=== PATIENT | male | born 1935 | race Caucasian/White ===

== ENCOUNTER → 2024-04-04 | Outpatient (CLI) | payer MEDICARE ==
--- NOTE | 2024-04-04 15:59 | HMCSR ---
APPROVED REPORT EXAM: Two-dimensional and M-mode echocardiogram with Doppler and color Doppler. INDICATION ICD: Atherosclerotic heart disease of [place] coronary artery without angina pectoris I25.10 2D Dimensions RVDd3.8 cmLVEF(%)64.0 (>50%)LVED Vol(simp.)88.0 mL IVSd1.2 (0.7-1.1cm)FS(%)35 %LVES Vol(simp.)29.3 mL LVDd4.6 (3.8-5.6cm)LA (2D)3.8 (1.6-4.0cm)LVEF(%, simp.)67 % PWd1.3 (0.7-1.1cm)LVOT diam2.4 (1.8-2.4cm)LA ESV INDEX (4CH)24.40 mL/m2 IVSs1.4 cmIVC diam1.8 cmLA ESV INDEX (2CH)41.60 mL/m2 LVDs3.0 (2.5-4.0cm)LA ESV INDEX (BP)32.50 mL/m2 PWs1.5 cm M-Mode Dimensions EPSS0.9 cm LA (MM)4.9 (1.6-4.0cm) Ao Root(MM)3.0 (2.0-3.7cm) Aortic Valve AoV VTI0.3 mAo Mean GR4.0 mmHgLVOT VTI0.18 m TERI (VMAX)2.6 cm2AVA (VTI) 2.6 cm2 Mitral Valve MV E Vmax94.6 cm/sDECEL Oaij581 ms MV A Loaz947.7 cm/sP 1/2 T107 ms E/A ratio0.9MVA (PHT)2.1 cm2 MR Max PG35 mmHg TDI E/E' Zdunfi49.0E/E' Zbayqda25.7 Medial E' Peak V5.90 cm/sLateral E' Peak V4.80 cm/s Pulmonary Valve PV Vmax1.4 m/s PV Peak GR7.5 mmHg Tricuspid Valve TR Vmax2.3 m/sRAP (EST) 3 nsPcQRKM96.6 mmHg TR Peak GR20.6 mmHg Left Ventricle The left ventricle is normal size. Mild concentric left ventricular hypertrophy. LVEF is 65-70%. Stag e I diastolic dysfunction. Right Ventricle The right ventricle is normal size. The right ventricular systolic function is normal. Atria The left atrium size is normal. The right atrium size is normal. Aortic Valve The aortic valve is normal in structure. Trace aortic regurgitation. There is no aortic valvular sten osis. Mitral Valve Mitral valve leaflets open well. Mild mitral annular calcification present. Mitral regurgitation is t race. There is no mitral valve stenosis. Tricuspid Valve The tricuspid valve is normal in structure. There is trcae tricuspid valve regurgitation noted, RVSP 23mmHg. Pulmonic Valve The pulmonary valve is normal in structure. There is no pulmonic valvular regurgitation. Great Vessels The aortic root is normal in size. The IVC is normal in size and collapses >50% with inspiration. Pericardium There is no pericardial effusion. Conclusion The left ventricle is normal size. LVEF is 65-70%. Trace aortic regurgitation. Mitral regurgitation is trace. Trcae tricuspid valve regurgitation
== END | disposition home or self-care (01) ==
LOC: RAH 11:57
PROVIDERS: ATTEND Internal Medicine Cardiovascular Disease
DX: I34.81 Nonrheumatic mitral (valve) annulus calcification (principal); I51.89 Other ill-defined heart diseases; I51.7 Cardiomegaly; I25.10 Atherosclerotic heart disease of native coronary artery without angina pectoris; I34.0 Nonrheumatic mitral (valve) insufficiency
CPT/HCPCS: 93306